=== PATIENT | male | born 1950 | race Caucasian/White ===

== ENCOUNTER 2017-07-25 18:47 | Inpatient (IN) | payer OTHER ==
[~2017-07-25] VITALS: Ht 182.9 cm; Wt 82.3 kg
[~2017-07-25 18:47] MED LIST: BENTYL20 MG PO; COLACE100 MG PO; NAPROXEN500 MG PO; VALIUM2 MG PO
[2017-07-25 19:39] LABS: HEMATOCRIT 47.7 % (38.0-50.0); HEMOGLOBIN 17.1 G/DL (12.5-16.6); MCH 32.3 PG (29.0-34.0); MCHC 35.8 G/DL (30.0-36.0); PLATELET COUNT 267 K/uL (156-360); RBC DIS.WIDTH-CV 11.6 % (11.8-14.6); RBC DIS.WIDTH-SD 37.9 % (39-53); WHITE BLOOD COUNT 17.1 K/uL (4.1-10.2)
[2017-07-25 19:47] LABS: ALBUMIN 4.3 g/dL (3.2-4.8); CHLORIDE 99 mEq/L (99-109); POTASSIUM 3.5 mEq/L (3.7-5.4)
[2017-07-25 19:48] LABS: SODIUM 137 mEq/L (136-147)
[2017-07-25] MEDS ORDERED: ASPIR 8181 M1 PO (19:48)
[2017-07-25] MEDS ORDERED: ZESTRIL5 MG PO (19:48)
[2017-07-25] MEDS ORDERED: ACID CONTROL150 MG PO (19:48)
[2017-07-25] MEDS ORDERED: HYDROCHLOROTHIA25 MG PO (19:48)
[2017-07-25 19:50] LABS: GLUCOSE 105 mg/dL (70-99)
[2017-07-25 19:52] LABS: TOTAL BILIRUBIN 1.1 mg/dL (0.0-1.0)
[2017-07-25 19:53] LABS: ALKALINE PHOSPHATASE 101 IU/L (3-129); GFR ESTIMATE (CALCULATED) > 59 mL/min/ (58.99-99999)
[2017-07-25 19:55] LABS: AST (GOT) 21 IU/L (2-34); UREA NITROGEN (BUN) 16 mg/dL (9-23)
[2017-07-25 19:56] LABS: ALT (GPT) 33 IU/L (3-49)
[2017-07-25 19:57] LABS: LIPASE 16 U/L (1.0-51.0)
[2017-07-25 20:02] LABS: APPEARANCE CLEAR ((CLEAR)); BILIRUBIN NEGATIVE; BLOOD SMALL; COLOR YELLOW ((YELLOW)); GLUCOSE (STRIP) NEGATIVE; KETONES NEGATIVE; LEUKOCYTES NEGATIVE; NITRITE NEGATIVE; PROTEIN (STRIP) NEGATIVE; SPECIFIC GRAVITY 1.019 (1.000-1.030)
[2017-07-25 20:10] LABS: BACTERIA RARE /HPF; EPITHELIAL CELLS RARE /HPF; MUCUS TRACE /LPF; RED BLOOD CELLS 0-5 /HPF (0-5); UCUL ADDED? NO; WHITE BLOOD CELLS 0-5 /HPF (0-5)
[2017-07-25] MEDS ORDERED: LIPITOR40 MG PO (23:37)
[2017-07-26 04:55] VITALS: BP 124/67
[2017-07-26 07:17] VITALS: BP 137/69
[2017-07-26 12:16] LABS: HEMATOCRIT 45.5 % (38.0-50.0); HEMOGLOBIN 15.6 G/DL (12.5-16.6); MCH 31.1 PG (29.0-34.0); MCHC 34.3 G/DL (30.0-36.0); MCV 90.8 FL (86-99); PLATELET COUNT 228 K/uL (156-360); RBC DIS.WIDTH-CV 11.7 % (11.8-14.6); RBC DIS.WIDTH-SD 39.2 % (39-53); RED BLOOD COUNT 5.01 M/uL (4.00-5.50); WHITE BLOOD COUNT 12.4 K/uL (4.1-10.2)
[2017-07-26 12:39] LABS: CHLORIDE 105 MEQ/L (99-109); CREATININE 0.8 MG/DL (0.6-1.3); GFR ESTIMATE (CALCULATED) > 59 mL/min/ (58.99-99999); GLUCOSE 100 mg/dL (70-99); POTASSIUM 4.2 MEQ/L (3.7-5.4); SODIUM 140 MEQ/L (136-147); UREA NITROGEN (BUN) 13 mg/dL (9-23)
[2017-07-26 16:24] VITALS: BP 106/58
[2017-07-26 23:33] VITALS: BP 92/51
[2017-07-27 06:32] LABS: HEMATOCRIT 41.9 % (38.0-50.0); HEMOGLOBIN 14.2 G/DL (12.5-16.6); MCH 31.2 PG (29.0-34.0); MCHC 33.9 G/DL (30.0-36.0); MCV 92.1 FL (86-99); PLATELET COUNT 203 K/uL (156-360); RBC DIS.WIDTH-CV 11.7 % (11.8-14.6); RBC DIS.WIDTH-SD 39.8 % (39-53); RED BLOOD COUNT 4.55 M/uL (4.00-5.50); WHITE BLOOD COUNT 9.8 K/uL (4.1-10.2)
[2017-07-27 06:58] LABS: CHLORIDE 109 MEQ/L (99-109); CREATININE 0.8 MG/DL (0.6-1.3); GFR ESTIMATE (CALCULATED) > 59 mL/min/ (58.99-99999); GLUCOSE 86 mg/dL (70-99); POTASSIUM 4.3 MEQ/L (3.7-5.4); SODIUM 140 MEQ/L (136-147); UREA NITROGEN (BUN) 11 mg/dL (9-23)
[2017-07-27 07:30] VITALS: BP 102/64
[2017-07-27] MEDS ORDERED: AMLODIPINE BES2.5 MG PO (12:07)
== END 2017-07-27 13:40 | disposition home or self-care (01) | DRG 439 ==
LOC: EXP 18:47 → EME 18:47 → 5EAST 07-26 02:20 → EDOF 07-26 02:20 → ENRESERV 07-26 02:22 → 5EAST 07-26 03:34
PROVIDERS: Physician Assistant
DX: K85.90 Acute pancreatitis without necrosis or infection, unspecified (principal); R65.10 Systemic inflammatory response syndrome (SIRS) of non-infectious origin without acute organ dysfunction; T50.2X5A Adverse effect of carbonic-anhydrase inhibitors, benzothiadiazides and other diuretics, initial encounter; E87.6 Hypokalemia; K21.9 Gastro-esophageal reflux disease without esophagitis; J45.909 Unspecified asthma, uncomplicated; I10 Essential (primary) hypertension; E78.5 Hyperlipidemia, unspecified; F31.9 Bipolar disorder, unspecified; Z88.0 Allergy status to penicillin; Z87.891 Personal history of nicotine dependence; Z79.82 Long term (current) use of aspirin
CPT/HCPCS: 74177; 80048; 80053; 81003; 83605; 83690; 85027; 87040; 99281; 99285; J1644; J1956; J2405; J7030